=== PATIENT | male | born 1970 | race Caucasian/White ===

== ENCOUNTER 2022-10-09 10:40 | Outpatient (CLI) | payer MEDICAID | END 2022-10-09 23:59 | disposition home or self-care (01) | LOC: VAS 10:40 | PROVIDERS: ATTEND Registered Nurse Medical-Surgical | DX: R60.0 Localized edema (principal) | CPT/HCPCS: 93970 ==

== ENCOUNTER 2023-07-06 15:15 | Outpatient (CLI) | payer MEDICAID | END 2023-07-06 23:59 | disposition home or self-care (01) | LOC: RAD 15:15 | PROVIDERS: ATTEND Physician Assistant | DX: M54.12 Radiculopathy, cervical region (principal); M48.02 Spinal stenosis, cervical region; M43.02 Spondylolysis, cervical region | CPT/HCPCS: 72040 ==

== ENCOUNTER 2023-08-13 11:54 | Outpatient (CLI) | payer MEDICAID | END 2023-08-13 23:59 | disposition home or self-care (01) | LOC: RAD 11:54 | PROVIDERS: ATTEND Nurse Practitioner Family | DX: M25.512 Pain in left shoulder (principal) | CPT/HCPCS: 73030 ==

== ENCOUNTER 2023-11-01 10:32 | Outpatient (CLI) | payer MEDICAID | END 2023-11-01 23:59 | disposition home or self-care (01) | LOC: MRI 10:32 | PROVIDERS: ATTEND Nurse Practitioner Family | DX: S43.431A Superior glenoid labrum lesion of right shoulder, initial encounter (principal); M25.511 Pain in right shoulder; M25.411 Effusion, right shoulder; M75.101 Unspecified rotator cuff tear or rupture of right shoulder, not specified as traumatic; M75.51 Bursitis of right shoulder; M19.011 Primary osteoarthritis, right shoulder; X58.XXXA Exposure to other specified factors, initial encounter; Y93.89 Activity, other specified; Y92.89 Other specified places as the place of occurrence of the external cause; Y99.8 Other external cause status | CPT/HCPCS: 73221 ==

== ENCOUNTER 2024-05-14 14:32 | Emergency (ER) | payer MEDICAID, OTHER ==
[~2024-05-14] VITALS: Ht 188 cm; Wt 129.1 kg
[2024-05-14 14:52] VITALS: BP 178/74; PULSE 79; RESP 18; TEMP 98.9; O2SAT 95
== END 2024-05-14 16:56 | disposition home or self-care (01) ==
LOC: ER 14:33
DX: S76.111A Strain of right quadriceps muscle, fascia and tendon, initial encounter (principal); S63.682A Other sprain of left thumb, initial encounter; S80.11XA Contusion of right lower leg, initial encounter; S20.211A Contusion of right front wall of thorax, initial encounter; V89.2XXA Person injured in unspecified motor-vehicle accident, traffic, initial encounter; Y93.89 Activity, other specified; Y92.89 Other specified places as the place of occurrence of the external cause; Y99.8 Other external cause status
CPT/HCPCS: 71045; 73140; 73564; 73590; 99284

== ENCOUNTER 2025-02-17 15:22 | Outpatient (CLI) | payer MEDICAID ==
[2025-02-17] MEDS ORDERED: GADOTERATE MEGLUMINE 7.5 MMOL/15 ML VIAL IV ONE (17:27)
--- NOTE | 2025-02-17 21:48 | RADIOLOGY REPORT ---
EXAM: MR MRI UPPER EXTREMITY RIGHT INDICATION: PAIN IN RIGHT SHOULDER;UNSP ROTATR-CUFF TEAR/RUPTR OF RIGHT SHOULDER,NOT TR TECHNIQUE: Multiplanar, multisequence MR images of the right shoulder were obtained after intravenous injection of gadolinium contrast. COMPARISON: [facility]ULI URRUTIA(S) on DOS: 05/14/24 FINDINGS: [CORACOACROMIAL ARCH]: Moderate degenerative change of the acromioclavicular joint. Intact coracoclavicular ligaments. Intact coracoacromial ligaments. Minimal subacromial/subdeltoid bursal fluid. Mild fluid of the rotator interval. Question lateral acromial downsloping. Correlate for subacromial/subdeltoid impingement. Slight appearance of enhancement in the anterior aspect of the rotator interval and minimally in the subacromial/subdeltoid bursa. Correlate for bursitis and/or sequelae of adhesive capsulitis [ROTATOR CUFF]: No full-thickness rotator cuff tear trace possible distal insertional interstitial tearing of the greater tuberosity footprint of the anterior fibers of the infraspinatus (series 6, image 14). Mild superior rotator cuff tendinosis. Mild tendinosis of the subscapularis tendon. [BICEPS TENDON]: Intact without tenosynovitis. [LABRUM]: Intact. [CARTILAGE]: No measurable cartilage defect. [GLENOHUMERAL JOINT]: No joint effusion. No intra-articular body.axillary pouch thickening. [BONES]: No acute fracture, osseous contusion, or aggressive focal osseous lesion. [MUSCLES]: Normal muscle bulk of the rotator cuff muscles. [NEUROVASCULAR/LYMPH NODES]: Normal. [OTHER]: None. IMPRESSION: 1. Question sequelae of adhesive capsulitis with axillary pouch thickening and enhancement of the rotator interval. 2. Trace possible distal insertional interstitial tearing of the greater tuberosity footprint of the anterior fibers of the infraspinatus. 3. No full-thickness rotator cuff tear. 4. Moderate degenerative change of the acromioclavicular joint. 5. Question lateral acromial downsloping. Correlate for subacromial/subdeltoid impingement. Also correlate for incompletely characterized bursal sided fraying of the anterior most fibers of the myotendinous junction of the supraspinatus
== END 2025-02-17 23:59 | disposition home or self-care (01) ==
LOC: MRI 15:22
PROVIDERS: ATTEND Specialist
DX: M19.011 Primary osteoarthritis, right shoulder (principal); M75.101 Unspecified rotator cuff tear or rupture of right shoulder, not specified as traumatic; M75.21 Bicipital tendinitis, right shoulder; M25.511 Pain in right shoulder
CPT/HCPCS: 73223; A9575